=== PATIENT | male | born 1990 | race Caucasian/White ===

== ENCOUNTER 2020-08-30 13:41 | Outpatient (REF) | payer OTHER, SELFPAY ==
--- NOTE | ~2020-08-30 | XR_ITS ---
EXAMINATION: XR CERVICAL SPINE CLINICAL INFORMATION: Cervical disc disorder. COMPARISON: None TECHNIQUE: 3 views of the cervical spine were obtained. FINDINGS: No prevertebral soft tissue swelling. Normal alignment in the visualized cervical spine. No evidence of acute fracture or subluxation. Disc spaces are maintained. Vertebral body heights are maintained. No suspicious findings in the lung apices. XR/XR cervical spine 3V IMPRESSION: No acute osseous abnormality.
== END 2020-08-30 13:42 | disposition home or self-care (01) ==
LOC: HO.XRAY 13:41
PROVIDERS: PCP Nurse Practitioner Family; Visit Provider Nurse Practitioner Family
DX: M50.90 Cervical disc disorder, unspecified, unspecified cervical region (principal)
CPT/HCPCS: 72040

== ENCOUNTER 2020-10-22 15:00 | Outpatient (RCR) | payer OTHER, SELFPAY ==
--- NOTE | 2020-09-18 16:45 | MHC.PT.EP ---
[facility] [place] Office [place] Office [place] Office [address] Angela Prieto [address] [phone] F: [phone] F: [phone] F: [phone] F: [phone] Physical Therapy Plan of Care Date of Evaluation: 09/18/20 Date of Surgery: Diagnosis: cervical disc disorder M50.90 Assessment: 30 y/o male referred to PT with cervical disc disorder. Reports neck pain of insidious onset for 2 months that radiates into L shoulder with tingling B cubital fossa/medial elbow. He works in IT. Reports pain and difficulty with looking up, sleeping, and exercise regime (running). Examination shows decreased cervical AROM, decreased scapular strength, increased tissue tension B cervical paraspinals/L UT/levator, hypomobility of thoracic spine, L ulnar neural tissue tension, and impaired postural awareness. Recommend PT 2x/week for 5 weeks to address impairments, implement HEP, and optimize functional mobility. Frequency and Duration: The patient will be seen 2x/week for 5 weeks Short Term Goals: 3 weeks: 1. Initiate and I with HEP 2. Improve cervical rotation to 65 B 3. Improve scapular strength to 4/5 B Director Of Distribution Goals: 5 weeks: 1. Pt will be able to look up without radicular sx 2. Pt will be able to sleep through the night with pain < 3/10 3. I with HEP and self management of sx Treatment Plan: Modalities to reduce pain, spasms and effusion. Manual therapy to restore motion and function. Therapeutic exercise to improve strength and flexibility. Neuromuscular re-education for posture and balance. Therapeutic activities to return to functional activities of daily living. Electronically signed by: Renee Calderon PT Please sign and return to therapist. Thank you for your referral.
--- NOTE | 2020-10-22 16:05 | MHC.PT.DC ---
[facility] [place] Office [place] Office [place] Office [address] Angela Prieto [address] [phone] F: [phone] F: [phone] F: [phone] F: [phone] Physical Therapy Discharge Report Diagnosis: cervical disc disorder M50.90 Date of Surgery: Date of Evaluation: 09/18/20 Date of Discharge: 10/22/20 Treatments to Date: 9 Cancellations to Date: 0 No Shows to Date: 0 Discharge Status: Independent with HEP Discharge Summary: Pt reports minimal-no change with therapy and he is not sure if his pain has changed. States it is mild pain that only bothers him when he sleeps, looks up, and sometimes with overhead L shoulder movement but not consistently. Exercises do not increase his pain. He feels better with cervical isometrics. We reviewed HEP and to continue with at home. Also discussed other interventions for pain management that he has yet to trial (ice, heat, cream such as IcyHot, pillow change, cervical roll. ) Pt is d/c at this time secondary to plateau of progress and I with HEP. He will f/u with MD if his pain worsens. Electronically signed by: Renee Calderon PT Please sign and return to therapist. Thank you for your referral.
== END 2020-10-22 16:05 | disposition home or self-care (01) ==
LOC: HO.PT 15:00
PROVIDERS: Visit Provider Nurse Practitioner Family
DX: M50.90 Cervical disc disorder, unspecified, unspecified cervical region (principal)
CPT/HCPCS: 97012; 97110; 97161

== ENCOUNTER 2021-03-20 08:09 | Outpatient (REF) | payer OTHER, SELFPAY ==
--- NOTE | ~2021-03-20 | XR_ITS ---
EXAMINATION: XR SHOULDER, LEFT CLINICAL INFORMATION: Left shoulder pain. COMPARISON: None TECHNIQUE: AP external rotation, Grashey, scapular Y, and axillary views of the left shoulder. FINDINGS: Alignment is normal at the acromioclavicular and glenohumeral joints. The acromioclavicular joint is normal. No hook-shaped acromion or acromiohumeral distance narrowing. No calcium deposition within rotator cuff tendons. The glenohumeral joint space is preserved. No glenohumeral arthritis, fracture or subluxation. The humeral head is well positioned over the intact glenoid. The visualized left lung is normal. XR/XR shoulder LT min 2V IMPRESSION: Normal left shoulder.
[2021-03-20 12:06] LABS: TSH reflex Free T4 2.08 uIU/mL (0.32-4.0)
[2021-03-20 12:29] LABS: Alanine Aminotransferase 108 U/L (0-40); Albumin Level 4.9 g/dL (3.5-5.0); Alkaline Phosphatase 88 U/L (39-117); Anion Gap 12 (12-20); Aspartate Amino Transferase 50 U/L (5-37); Bilirubin Total 0.8 mg/dL (0.0-1.0); Blood Urea Nitrogen 13 mg/dL (9-16); Calcium 9.8 mg/dL (8.4-10.2); Carbon Dioxide 26 mmol/L (22-29); Chloride 106 mmol/L (96-108); Cholesterol 230 mg/dL; Estimated Glomerular Filt Rate > 60; Glucose Fasting 98 mg/dL (60-99); HDL Cholesterol 34 mg/dL; LDL Cholesterol Calculated 164 mg/dl; Potassium 4.4 mmol/L (3.3-5.1); Sodium 140 mmol/L (135-145); Total Protein 8.1 g/dL (6.5-8.0); Triglycerides 164 mg/dL
== END 2021-03-20 08:10 | disposition home or self-care (01) ==
LOC: HO.HMGCLDS 08:09
PROVIDERS: PCP Nurse Practitioner Family; Visit Provider Nurse Practitioner Family
DX: Z00.00 Encounter for general adult medical examination without abnormal findings (principal); M25.512 Pain in left shoulder
CPT/HCPCS: 36415; 73030; 80053; 80061; 84443

== ENCOUNTER 2021-04-30 09:01 | Outpatient (REF) | payer OTHER, SELFPAY ==
--- NOTE | ~2021-04-30 | US_ITS ---
EXAMINATION: US ABDOMEN COMPLETE CLINICAL INFORMATION: R74.8 - Abnormal levels of other serum enzymes. COMPARISON: Ultrasound abdomen 11/02/2016, 03/18/2010 TECHNIQUE: Real-time imaging of the abdominal viscera. FINDINGS: PANCREAS: The visualized pancreas is normal in size and echogenicity. There is no pancreatic ductal distention. There are scattered portions of the pancreas including the body and tail which are partly obscured by bowel gas and not completely imaged. ABDOMINAL AORTA: The proximal, mid, and distal segments are normal in caliber. INFERIOR VENA CAVA: Visualized portions are normal. LIVER: Liver is within normal size and smooth in contour. There is mild increased hepatic parenchymal echogenicity consistent with hepatic steatosis. There is no intrahepatic biliary ductal dilatation. Doppler shows portal flow towards the liver. There is a solitary tiny hyperechoic lesion not previously documented posterior right lobe measuring only 0.5 cm, likely hemangioma. There are no other hyperechoic or hypoechoic hepatic parenchymal lesions. GALLBLADDER: Normal. The gallbladder is physiologically distended without evidence of stones, sludge, polyps, wall thickening or pericholecystic fluid. COMMON BILE DUCT: Within limits of normal size measuring 0.6 cm. No visible ductal calculus. RIGHT KIDNEY: Normal. No hydronephrosis. No renal calculi or focal parenchymal lesions. The kidney measures 10.8 cm in maximum dimension. LEFT KIDNEY: Normal. No hydronephrosis. No renal calculi or focal parenchymal lesions. The kidney measures 10.9 cm in maximum dimension. SPLEEN: The spleen is mildly enlarged measuring 13.8 cm. Prior measurement 11.2 cm in maximum dimension, ultrasound 2017. FREE FLUID: None. US/US abdomen complete IMPRESSION: 1. Mild hepatic steatosis. Probable tiny hemangioma right lobe only 0.5 cm. 2. No cholelithiasis or biliary ductal dilatation. 3. Mild splenic enlargement, 13.8 cm.
== END 2021-04-30 09:02 | disposition home or self-care (01) ==
LOC: HO.HMGCX 09:01
PROVIDERS: PCP Nurse Practitioner Family; Visit Provider Nurse Practitioner Family
DX: R74.8 Abnormal levels of other serum enzymes (principal)
CPT/HCPCS: 76700

== ENCOUNTER 2022-06-30 15:55 | Outpatient (REF) | payer OTHER, SELFPAY ==
[2022-06-30 16:21] LABS: MANUAL DIFF FLAG NO
[2022-06-30 17:24] LABS: Basophils Percent Auto 0.4 % (0-2); Eosinophils Absolute Auto 0.7 X10*3/uL (0.0-0.4); Eosinophils Percent Auto 6.6 % (0-4); Hematocrit 45.9 % (42.0-52.0); Hemoglobin 14.9 g/dl (14.0-18.0); Imm Gran Abs Auto 0.03 X10*3/uL (0.00-0.03); Imm Gran Pct Auto 0.3 % (0.0-0.4); Lymphocytes Absolute Auto 2.5 X10*3/uL (1.2-4.9); Lymphocytes Percent Auto 23.3 % (20-40); Mean Corpuscular HGB Conc 32.5 g/dl (31.0-36.0); Mean Corpuscular Hemoglobin 27.5 pg (27.0-33.0); Mean Corpuscular Volume 84.8 fL (80.0-98.0); Mean Platelet Volume 9.2 fL (9.4-12.4); Monocytes Absolute Auto 0.8 X10*3/uL (0.1-1.2); Monocytes Percent Auto 7.1 % (2-11); Neutrophils Absolute Auto 6.7 x10*3/uL (2.0-8.3); Neutrophils Percent Auto 62.3 % (45-73); Platelet Count 356 X10*3/uL (160-400); Red Blood Count 5.41 X10*6/uL (4.60-5.80); Red Cell Distribution Width 13.1 % (11.0-16.0); White Blood Count 10.8 X10*3/uL (4.8-10.8)
[2022-06-30 18:00] LABS: Alanine Aminotransferase 70 U/L (0-40); Albumin Level 5.1 g/dL (3.5-5.0); Alkaline Phosphatase 75 U/L (39-117); Anion Gap 13 (12-20); Aspartate Amino Transferase 31 U/L (5-37); Bilirubin Direct < 0.2 mg/dL (0.0-0.5); Bilirubin Total 0.4 mg/dL (0.0-1.0); Blood Urea Nitrogen 15 mg/dL (9-16); C Reactive Protein 0.36 mg/dL (< or = 0.50); Calcium 10.5 mg/dL (8.4-10.2); Carbon Dioxide 29 mmol/L (22-29); Chloride 103 mmol/L (96-108); Estimated Glomerular Filt Rate > 60; Glucose Random 84 mg/dL (60-115); Potassium 4.2 mmol/L (3.3-5.1); Sodium 141 mmol/L (135-145); Total Protein 8.6 g/dL (6.5-8.0)
[2022-06-30 18:10] LABS: Erythrocyte Sedimentation Rate 7 MM/HR (0-15)
[2022-07-01 11:02] LABS: CDiff Gene PCR NEGATIVE (Negative)
[2022-07-01 11:17] LABS: Leukocytes Stool Qualitative NEGATIVE (NEGATIVE)
[2022-07-01 12:46] LABS: Adenovirus F 40/41 Not Detected (Not Detect.); Astrovirus Not Detected (Not Detect.); Campylobacter Not Detected (Not Detect.); Cryptosporidium Not Detected (Not Detect.); Cyclospora cayetanensis Not Detected (Not Detect.); E. coli EAEC Not Detected (Not Detect.); E. coli EPEC Not Detected (Not Detect.); E. coli ETEC Not Detected (Not Detect.); E. coli STEC Not Detected (Not Detect.); Entamoeba histolytica Not Detected (Not Detect.); Giardia lamblia Not Detected (Not Detect.); Norovirus GI/GII Not Detected (Not Detect.); Plesiomonas shigelloides Not Detected (Not Detect.); Rotavirus A Not Detected (Not Detect.); Salmonella Not Detected (Not Detect.); Sapovirus Not Detected (Not Detect.); Shigella sp./EIEC Not Detected (Not Detect.); Vibrio Not Detected (Not Detect.); Vibrio Cholerae Not Detected (Not Detect.); Yersinia enterocolitica Not Detected (Not Detect.)
[2022-07-03 08:17] LABS: HBsAGNum1 0.29 S/CO (0.00-0.99)
[2022-07-03 08:18] LABS: Hepatitis B Surface Antigen Negative (Negative)
[2022-07-08 22:29] LABS: Calprotectin, Fecal 4120 mcg/g
[2022-07-12 19:44] LABS: Adalimumab Drug Level <0.8 mcg/mL; Anti-Adalimumab Antibody <10 AU (<10)
== END 2022-06-30 15:56 | disposition home or self-care (01) ==
LOC: HO.LAB 15:55
PROVIDERS: PCP Nurse Practitioner Family; Visit Provider Internal Medicine
DX: K50.80 Crohn's disease of both small and large intestine without complications (principal); R19.7 Diarrhea, unspecified; K62.5 Hemorrhage of anus and rectum; Z79.899 Other long term (current) drug therapy
CPT/HCPCS: 36415; 80053; 80145; 82248; 83520; 83993; 85025; 85652; 86140; 87340; 87493; 87507; 89055

== ENCOUNTER 2022-07-02 14:09 | Outpatient (REF) | payer OTHER, SELFPAY ==
[2022-07-04 08:38] LABS: TS Negative Control Passed; TS Panel A 1; TS Panel B 0; TS Positive Control Passed; TSpotTB Negative (Negative)
== END 2022-07-02 14:10 | disposition home or self-care (01) ==
LOC: HO.LAB 14:09
PROVIDERS: PCP Nurse Practitioner Family; Visit Provider Internal Medicine
DX: K50.80 Crohn's disease of both small and large intestine without complications (principal); R19.7 Diarrhea, unspecified; K62.5 Hemorrhage of anus and rectum
CPT/HCPCS: 86481

== ENCOUNTER 2022-07-13 10:24 | Day surgery (SDC) | payer OTHER, SELFPAY ==
[2022-07-13 10:37] VITALS: BMI 37.3
[2022-07-13 10:45] VITALS: BP 141/89; PULSE 101; RESP 16; TEMP 36.4; O2SAT 96
--- NOTE | 2022-07-13 10:55 | P.CONAN_ITS ---
Documented by User: Torres Mariscal MD 07/13/22 11:17 HPI - Anesthesia Eval Consult details Narrative: For colonoscopy [facility] Past Medical History Medical History (Updated 07/10/22 @ 13:00 by Leanna Kearns, RN) Crohn's disease Pilonidal cyst Family History Family history of problems with anesthesia: No Surgical History History of Problems with Anesthesia: No Social History Social History (System 03/24/21 @ 15:06 by Alexus Jenkins) Housing: House Alcohol intake: current Alcohol intake frequency: a few times a month Patient Tobacco Use Status: Never used Tobacco e-Cigarette/Vaping Use: Never Used Second Hand Smoke Exposure: Yes Use of substances other than those prescribed or required for medical reasons: Yes Are you DNR?: No Advance Directives: No Advance Directives Information Provided: Yes service: No Current occupational status: employed Current occupation: C Current occupational exposures/hazards: No Meds Allergies Allergy/AdvReac Type Severity Reaction Status Date / Time No Known Allergies Allergy Verified 07/03/21 12:43 Home Medications Medication Instructions Recorded Confirmed Last Taken Type mesalamine 1.2 gram tablet,delayed 4 tab PO QAM 07/13/22 07/13/22 07/13/22 History release Exam Airway Mallampati Class: II TM Dist: <=3cm Neck ROM: Full Loose/Missing/Broken Teeth: No Heart: ok Lungs: ok Assessment and Plan Assessment Anesthesia Assessment: Anesthesia Plan Discussed and Chart Reviewed Final Anesthetic Review Family History of Problems with Anesthesia: No History of Problems with Anesthesia: No NPO: Yes ASA Class: II Final Preanesthetic Review: No Changes in Pt Med Stat, Meds/Allgs Chart Reviewed, Consent Obtained/Reviewed and Anes Risks/Benef Reviewed Patient Risk: Intermediate Procedure Risk: Low Anesthetic Plan Anesthetic Plan: MAC: and Agree w/ Assess. and Plan Disposition: Standard PACU Documented by User: Kaycee Lucia MD [facility] Active Problems Active Problems: All Active Problems (Updated 07/10/22 @ 13:00 by Leanna Kearns RN) Physical exam (Acute) HTN (hypertension) (Acute) Cervical neck pain with evidence of disc disease (Acute) Acute sinusitis (Acute) Left shoulder pain (Acute) Elevated liver enzymes (Acute) Dyslipidemia (Acute) Past Medical History Medical History (Updated 07/10/22 @ 13:00 by Leanna Kearns RN) Crohn's disease Pilonidal cyst Social History Social History (System 03/24/21 @ 15:06 by Alexus Jenkins) Housing: House Alcohol intake: current Alcohol intake frequency: a few times a month Patient Tobacco Use Status: Never used Tobacco e-Cigarette/Vaping Use: Never Used Second Hand Smoke Exposure: Yes Use of substances other than those prescribed or required for medical reasons: Yes Are you DNR?: No Advance Directives: No Advance Directives Information Provided: Yes service: No Current occupational status: employed Current occupation: [employer] Current occupational exposures/hazards: No Meds Allergies Allergy/AdvReac Type Severity Reaction Status Date / Time No Known Allergies Allergy Verified 07/03/21 12:43 Active Medications: Current Medications Sodium Biphosphate/Sodium Phosphate (Sodium Phosphate,[place]-Dibasic 133 Ml Enema) 133 ml [place] ONCE PRN PRN Reason: Poor Colonoscopy Prep Results Home Medications Medication Instructions Recorded Confirmed Last Taken Type mesalamine 1.2 gram tablet,delayed 4 tab PO QAM 07/13/22 07/13/22 07/13/22 History release Exam Exam Date and Time: July 13, 2022 1055 Height,Weight and Vital Signs: Height 5 ft 10 in Weight 117.934 kg
[2022-07-13] MEDS: Sodium Phosphate,Mono-Dibasic 133 ML ENEMA PR (11:12)
--- NOTE | 2022-07-13 11:17 | PC.NURSE ---
left lateral position for fleet enema. offered my assistance of self admin. slight burning per patient then sensation went away. pipo procedure well.
--- NOTE | 2022-07-13 11:25 | PC.NURSE ---
after fleet enema clear output.
[2022-07-13] MEDS: Lactated Ringers 1,000 ML 100 ML IVCONT (11:29)
[2022-07-13 12:14] VITALS: BP 120/65; PULSE 72; RESP 16; TEMP 36.1; O2SAT 97
[2022-07-13 12:29] VITALS: BP 130/67; PULSE 73; RESP 16; TEMP 36.4; O2SAT 97
--- NOTE | 2022-07-13 12:30 | PM.OP ---
Brief Operative Note Date of Service: 07/13/22 Pre-op diagnosis: Colitis Post-op diagnosis: other (Pancolitis) Procedure: Colonoscopy to the cecum and TI with biopsies Surgeon: Kal Bazzi Anesthesia: MAC Was an Welt Slasher used for this Procedure?: No Estimated blood loss (mL): 3.0 Pathology: other (A. Terminal ileum B. Ascending colon C. Transverse colon D. Descending colon E. Sigmoid colon F. Rectum) Condition: stable Disposition: PACU
[2022-07-13 13:03] VITALS: BP 155/79; PULSE 75; RESP 18; O2SAT 96
--- NOTE | 2022-07-14 14:25 | OP_ITS ---
SURGEON: Kal Bazzi MD INDICATIONS: The patient presents for evaluation of underlying history of Crohn's disease, diarrhea, and hematochezia. Full consent has been obtained from him for this, including risks of bleeding and perforation. PREOPERATIVE DIAGNOSIS: Crohn's disease, diarrhea, and hematochezia. POSTOPERATIVE DIAGNOSIS: Crohn's disease, diarrhea, hematochezia, and pancolitis. PROCEDURE PERFORMED: Colonoscopy to the cecum and terminal ileum with biopsies. ESTIMATED BLOOD LOSS: COMPLICATIONS: ANESTHESIA: Medication Used: Monitored anesthesia care. ASSISTANTS: SPECIMENS: DESCRIPTION OF PROCEDURE: The patient was placed in the left lateral decubitus position. The digital rectal exam revealed no abnormalities. There was no evidence of any perianal disease. The Olympus video pediatric colonoscope was entered into the rectum and advanced easily to the cecum. Once in the cecum, I did identify cecal pouch with appendiceal orifice and a normal-appearing ileocecal valve other than some overlying colitis. The terminal ileum was cannulated for at least 5 to 10 cm and appeared grossly normal without any sign of Crohn's disease. Biopsies were obtained. The scope was withdrawn back in the colon. The entire cecum was involved with a [id number] colitis with some friability, edema, and tiny ulcerations. The scope was then slowly withdrawn assessing all mucosal surfaces carefully. Preparation was excellent. For the most part, there was a pancolitis other than approximately 10 cm of the sigmoid colon that was spared. The colitis for the most part was diffuse and kwbo-zo-wdkqtbbpht active, but without discrete ulcerations. There was no evidence of any polyps nor strictures. Mucosa was edematous and friable. Biopsies were obtained in the ascending colon, transverse colon, descending colon, sigmoid colon and rectum. The rectum was involved with this as well, although the more distal rectum was somewhat spared. The scope was retroflexed, visualizing some minimal internal hemorrhoids. The scope was straightened and withdrawn from the patient. He tolerated the procedure well and was returned to the recovery area in stable condition. IMPRESSION: 1. Pancolitis, status post biopsies. 2. Normal terminal ileum. PLAN: The results of biopsies will be checked. He does have a diagnosis of Crohn's disease based on previous workups over 10 years ago, which revealed disease in both the colon and terminal ileum. He had been on Humira in the past, but has been off all medications on his own over the past 4 or 5 years. He was started on Lialda last week. Due to his active symptoms and today's findings, I shall put him on a course of prednisone 40 mg daily for 1 week and then a 5 mg per week taper. Recent blood work showed negative antibodies for Humira and therefore, we may want to start him back on that given his history. The other option would be to see how he does on the prednisone taper, and if things remain in remission with just the oral mesalamine, he can continue that. However, given his history, I would have a low threshold to restart him on the Humira or a different biologic if need be. He did have a recent hepatitis B antigen and TB test that were negative. He will be seen in followup in the office. He was advised to stay off all aspirin and NSAIDs long-term. This has been discussed with his fiancee. MD SUHAIL Fu/ILA / [phone] MTDRakesh
== END 2022-07-13 13:57 | disposition home or self-care (01) ==
PROVIDERS: PCP Nurse Practitioner Family; Visit Provider Internal Medicine
PROC: 0DJD8ZZ Inspection of Lower Intestinal Tract, Via Natural or Artificial Opening Endoscopic (ICD-10-PCS; CPT 45378; principal; 2022-07-13 11:30)
DX: K51.00 Ulcerative (chronic) pancolitis without complications (principal); K62.5 Hemorrhage of anus and rectum; R19.7 Diarrhea, unspecified; K62.89 Other specified diseases of anus and rectum; Z79.899 Other long term (current) drug therapy; K64.8 Other hemorrhoids
CPT/HCPCS: 45380; 88305

== ENCOUNTER 2023-07-21 16:22 | Outpatient (AMB) | payer OTHER, SELFPAY ==
[2023-07-21 16:30] VITALS: BP 136/98; PULSE 71; O2SAT 96; BMI 36.3
--- NOTE | 2023-07-21 16:30 | MHC.PC.OV ---
Vital Signs 07/21/23 16:30 Height 5 ft 10 in Weight 253 lb BMI 36.3 BP 136/98 H Blood Pressure Location Lt brachial Position Sitting Pulse 71 Pulse Source Pulse Oximeter Pulse Oximetry (%) 96 Oxygen Delivery Method Room Air Intake Visit Reasons: physical Allergies No Known Allergies Allergy (Verified 07/21/23 17:13) Medication List - Last Reconciled 07/21/23 by MAYRA Younger-DAVIN mesalamine 4 tabs PO QAM Tobacco use date assessed: 07/21/23 Dental Screening Dental Screen Date: 08/11/23 Did you have a dental visit in the last 12 months?: Yes Did you have a dental problem in the last 6 months where you did not have access to dental care?: No Was dental information given to patient?: Patient has dentist HPI HPI Comments History of Present Illness Details Pt is here for a PE. Will order labs. Pt has been using a stationary bike, losing weight. Will have him check his BP at home and send me values in the near future. [facility] Medical History Crohn's disease Pilonidal cyst Social History Housing: House Alcohol intake: current Alcohol intake frequency: a few times a month Patient Tobacco Use Status: Never used Tobacco e-Cigarette/Vaping Use: Never Used Second Hand Smoke Exposure: Yes service: No Current occupational status: employed Current occupation: [employer] Current occupational exposures/hazards: No Cognitive needs: No Hearing needs: No Vision needs: No Questionnaire Thrive Questionnaire Date Thrive assessed: 03/20/21 AUDIT C Alcohol Use Questionnaire (AUDIT-C) 1. How often do you have a drink containing alcohol?: Monthly or less 2. How many drinks containing alcohol do you have on a typical day when you are drinking?: 3 or 4 3. How often do you have six or more drinks on one occasion?: Never Total Score: 2 YENY-7 AMB Questionnaire YENY-7 Date YENY - 7 assessed: 07/03/21 Feeling nervous, anxious, or on edge: 0 = Not at all Not being able to stop or control worryin = Not at all Worrying too much about different things: 0 = Not at all Trouble relaxin = Not at all Being so restless that it is hard to sit still: 0 = Not at all Becoming easily annoyed or irritable: 0 = Not at all Feeling afraid as if something awful might happen: 0 = Not at all Total YENY-7 score (0-4 normal; 5-9 mild; 10-14 moderate; 15-21 severe): 0 Source: Developed by Drs. Kal Sommers, Kylie Guzman, Mio Stephen and colleagues, with an educational vasile from [employer]. Review of Systems Const Denies chills and Denies fever(s) Eyes Denies blurry vision ENT Denies vertigo, Denies dizziness and Denies sore throat Card Denies chest pain at rest, Denies chest pain with activity, Denies diaphoresis, Denies dyspnea and Denies dyspnea on exertion Resp Denies cough, Denies dyspnea, Denies dyspnea on exertion and Denies wheezing GI Denies abdominal pain, Denies melena, Denies hematochezia, Denies constipation, Denies diarrhea and Denies loose stools Denies hematuria Musc Denies numbness and Denies tingling Skin/Breast Denies lesions Neuro Denies vertigo, Denies dizziness, Denies numbness and Denies tingling Psych Denies anxiety, Denies depression, Denies homicidal ideation, Denies suicidal ideation and Denies other (substance abuse) Aller/Immun Denies wheezing Physical exam (Primary Care) Vital Signs: Last Vital Signs Pulse 71 07/21/23 16:30 BP 136/98 H 07/21/23 16:30 Pulse Ox 96 07/21/23 16:30 Oxygen Delivery Method Room Air 07/21/23 16:30 BMI result Body Mass Index 36.3 Tobacco/Smoking Status: Tobacco use Status Tobacco use date assessed 07/21/23 07/21/23 16:37 Patient Tobacco Use Status Never used Tobacco 07/21/23 16:37 e-Cigarette/Vaping Use Never Used 07/21/23 16:37 Thrive Assessment: Date of Thrive Assessment Date Thrive assessed 03/20/21 07/21/23 16:37 Const General: cooperative Nutritional Appearance: well nourished Orientation/consciousness: patient oriented x3 HENMT Head: Yes normal to inspection, Yes normocephalic and Yes atraumatic Ears: TM's normal bilaterally Eyes General: appearance normal, both eyes and all related structures Alignment and Position: alignment normal and position normal Neck Neck: Yes normal visual inspection and Yes no lymphadenopathy Thyroid: Thyroid normal Resp Effort & Inspection: normal respiratory effort Auscultation: clear to auscultation bilaterally Cardio Rate: regular rate Rhythm: regular rhythm Heart sounds: S1 normal heart sound present, S2 normal heart sound present and no murmurs GI Palpation (GI): Soft to palpation and nontender Auscultation: normal bowel sounds Male General Exam: Yes normal external exam Penis: normal penis Scrotum: scrotum normal, testes descended bilaterally and no inguinal hernias Testes: no testicular mass Skin Rashes: no rashes Neuro General: patient oriented x3, moves all extremities, no focal motor deficits and deep tendon reflexes 2+ bilaterally Romberg Test: Negative Psych Appearance: grossly normal Mental Status: mental status grossly normal Speech and movement: Normal speech and movement present Affect: normal affect Attitude: cooperative Thought process: Normal thought process present Thought content: Normal thought content present Insight: Good insight present (Psych) Judgement: Good judgement present (Psych) Assessment and Plan Assessment & Plan (1) HTN (hypertension): Comment: please monitor at home, drop off values Code(s): I10 - Essential (primary) hypertension Plan: check BPs at home, send me values in the near future (2) Encounter for routine adult physical exam with abnormal findings: Code(s): Z00.01 - Encounter for general adult medical examination with abnormal findings Coding Level of Care Code Est Pt Prev Care 18-39y(46117) Diagnoses HTN (hypertension) I10 Encounter for routine adult physical exam with abnormal findings Z00.01
== END 2023-07-21 17:01 | disposition home or self-care (01) ==
PROVIDERS: Visit Provider Nurse Practitioner Family
DX: Z00.00 Encounter for general adult medical examination without abnormal findings (principal); I10 Essential (primary) hypertension
CPT/HCPCS: 99395